=== PATIENT | female | born 1965 | race African-American/Black ===

== ENCOUNTER → 2020-09-24 | Emergency (ER) | payer MEDICAID ==
[~2020-09-24] VITALS: Ht 165.1 cm; Wt 90.7 kg
[~2020-09-24] MED LIST: Ketorolac 30mg Inj IM ONE; LIDODERM700 M1 TOPIC; NAPROXEN500 M1 ORAL; ROBAXIN-500MG ORAL
[2020-09-24 12:40] VITALS: BP 154/84
--- NOTE | 2020-09-24 13:19 | Emergency Room Report ---
History of Present Illness General Chief Complaint: Upper Extremity Injury Source: Patient Present Illness HPI Patient is a pleasant 55-year-old female with past medical history of hypertension, dyslipidemia, obesity, osteoarthritis who presents to the emergency department for acute on chronic left shoulder pain. She states that 3 years ago she experienced similar problems, for which she used to receive ster oid injections in her shoulder for, however she apparently fractured her left ankle and was no longer allowed to get injections because her orthopedic surgeon wanted her left ankle to heal. She states that deep tissue massages alleviate her pain. She has otherwise not tried any medication at home. She thinks her large breast size is exacerbating her left shoulder pain and has previously sought breast reduction surgery but was lost to follow-up . She states that since she has to wear her bra very tight, she sometimes feels tingling down the left side of her shoulder (where the bra touches) radiating all the way down to the left thumb. She denies any trauma, midline cervical, thoracic, or lumbar back pain, focal weakness, headache, vision changes, slurred speech, difficulty walking, nausea, vomiting, diarrhea, chest pain, shortness of breath, abdominal pain or any other symptoms. The patient's symptoms were gradual onset, severity was moderate, duration since 3 years but worse over the last few weeks. Denies chiro manipulation or neck trauma. Quality: Aching Past medical history: Hypertension, dyslipidemia, osteoarthritis Past surgical history: Left ankle surgery Smoking: Denies Alcohol use: Denies Drug use: Denies Review of systems: CONST: No fevers or chills, No night sweats PULMONARY: No productive cough, No shortness of breath CARDIAC: No chest pain, No palpitations GI: No vomiting, No diarrhea , No melena_or_BRBPR : No dysuria, No hematuria, No discharge NEURO: No new_focal_weakness_or_numbness, No confusion, No vision changes 14 point Review of Systems is otherwise negative except per HPI Physical Exam: GENERAL: Awake_alert_ nontoxic, no acute distress Spo2 98% on RA -normal EYES: Extraocular muscles are intact. Conjunctivae clear. Lids without swelling ENT: External nose and ear normal_in_appearance. Oropharynx clear. Head_atraumatic, Moist_oral_mucosa NECK: No JVD. No meningismus. No thyromegaly. Supple. Trachea midline. Negative Brudzinski. Negative Kernig. Left paraspinal cervical muscular hypertonicity. Positive tenderness to palpation of left trapezius muscle. RESP: Normal respiratory effort. Symmetric rise. No stridor. Clear_to_auscultation_No_rales_No_wheezes CARDIAC: Regular rate and regular rhytm. No_significant pedal edema. ABDOMEN: Soft. Nondistended. Nontender_No_rebound_or_guarding. MSK: Extremities without asymmetric deformity or swelling. Upper extremity exam: Left Elbow: No swelling / effusion appreciated, no significant pain with passive range of motion Wrist: No swelling / effusion appreciated, no significant pain with passive range of motion Lateral epicondyle: no tenderness / swelling / ecchymoses Medial epicondyle: no tenderness / swelling / ecchymoses Radial pulse: 2+ Capillary refill: <3 seconds in all fingers All fingers: full range of motion without any tenderness / swelling / deformity / evidence of infection Scaphoid: no tenderness / swelling / ecchymoses, no pain with axial loading of the thumb Radian / Median / Ulnar nerves: all intact (finger opposition, finger adduction / abduction, thumb dorsiflexion) Sensation intact to light touch: in all fingers Strength 5/5 with: wrist dorsi / volar flexion, hand precipitation equipment tender, elbow flexion / extension SKIN: Warm and dry. No visible cyanosis or pallor NEUROLOGIC: Alert, oriented x3. Motor_and_sensation_grossly_intact. No truncal ataxia. Gait_normal Psych: Normal mood and affect, normal judgment and insight - COORDINATION OF CARE Case was discussed with: Patient Medical Decision Making/Plan: Differential diagnosis includes musculoskeletal pain, OA DOUBT fracture, dislocation, compartment syndrome, arterial occlusion, nerve damage, among others. Patient is neurovascularly intact and afebrile. No headache. No abnormal cerebellar signs. Left shoulder has full range of motion in flexion, extension, internal and external rotation. No pain out of proportion. Doubt septic joint. Doubt central process/stroke given the chronicity or her symptoms. She is noted to have significant left trapezius hypertonicity and subjective paresthesia of left thumb x 3 days. Suspect thoracic outlet syndrome vs neuropathy. Distally the patient has capillary refill <2 seconds and strong pulses. There is no pallor or pain out of proportion to exam. There is no significant swelling, deformity, or report of significant dislocation that subsequently reduced. No evidence of arterial occlusion or injury. The associated joints have full range of motion without any significant pain or restriction in mobility. No evidence at this time of major ligamentous disruption. The patient is able to bear weight and has no neurologic deficits. No evidence significant nerve damage, compartment syndrome at this time. ED intervention included toradol with relief of symptoms. Pertinent results reviewed with the patient. I educated the patient on the current treatment plan including the risks, benefits, and alternatives. I also discussed the extent and limitations of the current evaluation. The patient expressed understanding and agreement with plan. I recommended PMD follow-up within 1-2 days. Also advised that the patient return to the Emergency Department as soon as possible if they experience any new, persistent, or worsening symptoms. Allergies: Coded Allergies: No Known Allergies (Unverified , 09/24/20) COVID-19 Screening Contact w/high risk pt: No Experienced COVID-19 symptoms?: No COVID-19 Testing performed DIE BARBER: No Patient History Now: No Nursing Documentation-PMH Past Medical History: No Stated History Physical Exam Vital Signs Date Time Temp Pulse Resp B/P (MAP) Pulse Ox O2 Delivery O2 Flow Rate FiO2 09/24/20 12:40 97.5 94 18 154/84 (107) 98 Room Air Sp02 EP Interpretation: reviewed, normal Medical Decision Making Diagnostic Impression: Primary Impression: Left shoulder pain Additional Impression: Muscle spasm Last Vital Signs Date Time Temp Pulse Resp B/P (MAP) Pulse Ox O2 Delivery O2 Flow Rate FiO2 09/24/20 12:40 97.5 94 18 154/84 (107) 98 Room Air Disposition: HOME, SELF-CARE Admit Decision Time: 13:17 Condition: Stable Scripts Naproxen* (NAPROXEN*) 500 Mg Tablet.dr 500 MG ORAL TWICE A DAY for 10 Days, #20 TAB Prov: Kasandra Neff D.O. 09/24/20 Lidocaine Patch* (Lidoderm Patch*) 1 Each Adh..patch 1 PATCH TOPIC DAILY, #7 PATCH 0 Refills Patch(es) may remain in place for up to 12 hours in any 24-hour period. Prov: Kasandra Neff D.O. 09/24/20 Methocarbamol* (ROBAXIN-500*) 500 Mg Tablet 500 MG ORAL QID PRN for For Pain, #20 TAB 0 Refills Prov: Kasandra Neff D.O. 09/24/20 Referrals: NON PHYSICIAN (PCP) Patient Instructions: Muscle Cramps and Spasms, [id number], Shoulder Pain, [id number] Additional Instructions: Instructions for patient/client development consultant: Follow up with your physician in 1-2 days. Do not take robaxin and drive. Do not combine with alcohol. Follow-up with your doctor sooner if your condition requires a more timely clinical reevaluation. Return to the emergency department immediately if you feel that your condition is worsening or if you have any new or concerning symptoms. Review your discharge instructions and take any prescriptions given as instructed. [facility] PROVIDES FREE OR LOW-COST HEALTH SERVICES TO PEOPLE WHO CAN SHOW PROOF THAT THEY LIVE IN [place]. TO FIND MORE CLINICS PARTNERED WITH [facility] TO PROVIDE SERVICE, PLEASE CALL . Kasandra Neff D.O. Sep 24, 2020 13:19
== END | disposition home or self-care (01) ==
LOC: EMR 13:13
DX: M25.512 Pain in left shoulder (principal); M62.838 Other muscle spasm; I10 Essential (primary) hypertension; E78.5 Hyperlipidemia, unspecified; M19.90 Unspecified osteoarthritis, unspecified site
CPT/HCPCS: 96372; J1885; Z7502; 99283